=== PATIENT | female | born 1990 | race Caucasian/White ===

== ENCOUNTER → 2018-01-30 13:37 | Outpatient (CLI) | payer MEDICAID, SELFPAY | PROVIDERS: Visit Provider Nurse Practitioner | DX: E10.9 Type 1 diabetes mellitus without complications (principal); Z79.4 Long term (current) use of insulin | CPT/HCPCS: 36415; 83036 ==

== ENCOUNTER → 2018-07-16 11:55 | Outpatient (CLI) | payer MEDICAID, SELFPAY ==
[2018-07-16 12:39] LABS: Microalbumin:Creatinine Ratio 37.9 mg/g CRE (<30 mg/g CRE)
[2018-07-16 13:04] LABS: AST(SGOT) 11 U/L (15-37); Alanine Aminotransfer ALT/SGPT 22 U/L (13-56); Albumin, Serum 3.6 g/dL (3.2-5.0); Alkaline Phosphatase 67 U/L (45-117); Anion Gap 8 (5-15); BUN 15 mg/dL (7-18); BUN/Creat Ratio 18.1 RATIO (10-20); Calcium,Total 8.9 mg/dL (8.5-10.1); Chloride 102 mmol/L (98-107); Cholesterol 152 mg/dL (200); Creatinine, Serum 0.83 mg/dL (0.55-1.02); EST Glomerular Filtration Rate 86 mL/min (>60); Est Glom Filt Rate - Afr Amer 104 mL/min (>60); Globulin 3.5 g/dL (2.2-4.2); Glucose 196 mg/dL (74-106); High Density Lipoprotein 59 mg/dL; Potassium 4.2 mmol/L (3.5-5.1); Protein, Total 7.1 g/dL (6.4-8.2); Sodium Level 140 mmol/L (136-145); Triglycerides 54 mg/dL; Very Low Density Lipoprotein 11 mg/dL (5-40)
[2018-07-16 13:06] LABS: Hemoglobin A1c 9.2 % (4.2-6.3)
== END ==
PROVIDERS: Referring Provider Nurse Practitioner; Visit Provider Nurse Practitioner
DX: E10.65 Type 1 diabetes mellitus with hyperglycemia (principal)
CPT/HCPCS: 36415; 80053; 80061; 82043; 82570; 83036

== ENCOUNTER → 2018-11-05 11:39 | Outpatient (CLI) | payer MEDICAID, SELFPAY ==
[2018-11-05 10:51] VITALS: BMI 20.4
[2018-11-05 12:33] LABS: Hemoglobin A1c 9.1 % (4.2-6.3)
[2018-11-05 12:35] LABS: Microalbumin,Random Urine 70.5 mg/L (NO RANGE EST.); Microalbumin:Creatinine Ratio 69.8 mg/g CRE (<30 mg/g CRE)
[2018-11-05 12:59] LABS: AST(SGOT) 18 U/L (15-37); Alanine Aminotransfer ALT/SGPT 25 U/L (13-56); Albumin, Serum 3.8 g/dL (3.2-5.0); Alkaline Phosphatase 79 U/L (45-117); Anion Gap 6 (5-15); BUN 15 mg/dL (7-18); Calcium,Total 8.6 mg/dL (8.5-10.1); Chloride 106 mmol/L (98-107); Creatinine, Serum 0.75 mg/dL (0.55-1.02); EST Glomerular Filtration Rate 96 mL/min (>60); Est Glom Filt Rate - Afr Amer 116 mL/min (>60); Globulin 3.8 g/dL (2.2-4.2); Glucose 203 mg/dL (74-106); Protein, Total 7.6 g/dL (6.4-8.2); Sodium Level 139 mmol/L (136-145)
== END ==
PROVIDERS: Referring Provider Nurse Practitioner; Visit Provider Nurse Practitioner
DX: E10.65 Type 1 diabetes mellitus with hyperglycemia (principal)
CPT/HCPCS: 36415; 80053; 82043; 82570; 83036

== ENCOUNTER 2020-07-13 09:45 | Day surgery (SDC) | payer MEDICAID, SELFPAY ==
[2019-07-31 11:04] VITALS: BMI 20.4
--- NOTE | 2020-07-12 13:48 | HP.PCM_ITS ---
History and Physical Date of Admission: 07/13/20 HISTORY OF PRESENT ILLNESS 30 year old woman presents with a soft tissue mass right supramedial cheek by lateral nasal sidewall that she has had for a year and has increased in size over the last few months. There is some discomfort when she bumps it. She denies fever. She denies trauma. She denies any recent infection. She also has a concern about a lesion on her right ear in the mid antehelical fold area. There is discomfort when she bumps it. She denies any drainage. She denies trauma. She presents at this time for further evaluation and treatment. Patient has diabetes mellitus and her last HgbA1c was 7.9 in 04/06.. PAST MEDICAL HISTORY Alcohol abuse Anxiety Depression Diabetes type 1, controlled Diabetic retinopathy Vision problems partial vitrectomy PAST SURGICAL HISTORY csection x 3 ALLERGIES No Known Allergies MEDICATIONS insulin lispro (U-100) lisinopril insulin glargine (U-100) FAMILY HISTORY Unknown - Heart disease, Cancer Other - Alcoholism /alcohol abuse, Anxiety, Colon cancer, Respiratory disease Skin cancer (melanoma) SOCIAL HISTORY Smoking Status: Current every day smoker alcohol intake: former substance use type: does not use REVIEW OF SYSTEMS General - Denies fever and weight loss. Has fatigue. Eyes - Denies cataracts and glaucoma. ENT - Denies nasal congestion and sore throat. Endocrine - Denies excessive thirst and urination. Patient has diabetes mellitus. Skin - Denies skin cancer. Has enlarging painful soft tissue mass right supramedial cheek by lateral nasal sidewall and painful lesion right ear in mid antehelical fold. There is a family history of skin cancer. Musculoskeletal - Has joint pain, joint stiffness, weakness of muscles and joints. Denies back pain, and arthritis. Neuro - Denies headaches. Cardiovascular - Denies chest pain, fatigue, and shortness of breath with exertion. Psych - Denies anxiety and depression. Respiratory - Denies chronic cough and shortness of breath. Patient is a smoker. Gastrointestinal - Denies nausea, vomiting, diarrhea, and constipation. Hematologic - Denies abnormal bruising and bleeding. Genitourinary - Denies hematuria and urinary frequency. PHYSICAL EXAMINATION General - Alert and Oriented. HEENT - PERRL. EOMI. Throat is clear. On the right supramedial cheek by lateral nasal sidewall is a soft tissue mass. Measures 6 mm. Mobile. No evidence of infection. No ulceration. Slight tenderness to palpation. On the right ear in the mid antehelical fold area is a 6 mm lesion that is raised in configuration. Adherent to the underlying cartilage. No ulceration. No exposed cartilage. Slight tenderness to palpation. Neck - Supple and nontender. No cervical adenopathy. No suspicious lesions noted. Lungs - Clear to auscultation. Heart - Regular rate and rhythm. Abdomen - Soft and nondistended. Extremities - FROM. No axillary adenopathy. Radial pulses are palpable. No suspicious lesions noted. Neuro - CN II-XII grossly intact. Psych - Normal mood and affect. ASSESSMENT 1. 6 mm painful soft tissue mass right supramedial cheek by lateral nasal sidewall. 2. 6 mm painful lesion right ear in mid antehelical fold. 3. Family history of skin cancer. 4. Diabetes mellitus. 5. Smoker. PLAN Recommend excision of the soft tissue mass right supramedial cheek by lateral nasal sidewall and send it to Pathology for analysis to rule out carcinoma. Recommend excision of the painful lesion right ear in the mid antehelical fold and send it to Pathology for analysis to rule out carcinoma. If carcinoma is present, then further excision will be done with skin grafting. Surgery will be done under general anesthesia on an outpatient basis. Since the surgery is not an emergency, her HgbA1c is 7.9. It needs to be less than 8 before proceeding with surgery. Patient was informed of the risks and complications of the procedure including alternatives to surgery. These were discussed with the patient personally. Patient voices understanding and wishes to proceed. Some of the risks and complications were included in a form from the [place] [employer]. Encouraged patient to stop smoking as it may have deleterious effects on wound healing. We discussed the current risks associated with COVID-19. While it is understood that there is a community spread of COVID-19, the risk of sam COVID-19 while at [facility] ([facility]) is very low; however, the risk cannot be completely mitigated because of the community spread of the disease. We discussed in detail the risk of exposure to and/or potential harm posed by the COVID-19 virus with having a surgery/procedure at this time versus the risk of delaying the surgery/procedure. It is not possible to know either the risk of delaying the surgery or procedure or chance of getting an infection with perfect accuracy, but a joint decision was made to proceed at this time with the scheduled surgery/procedure as indicated on the consent form. Patient was notified that we will need to comply with any screening or testing [facility] wishes to perform or that surgery may be delayed for any positive results. Discussed with the patient that I was tested for COVID-19 on 03/19/20 which was negative and on 04/02/20 which was negative and on 04/16/20 which was negative and on 04/30/20 which was negative and on 05/14/20 which was negative and on 06/04/20 which was negative and on 06/25/20 which was negative. My testing regimen at this time is to be COVID-19 tested every 2 weeks or so. Procedure Criteria Procedure Type: Elective COVID Risk Discussion: The surgeon/proceduralist and patient have discussed in detail the risk of exposure to and/or potential harm posed by the COVID-19 virus with having a surgery/procedure at this time versus the risk of delaying the surgery/procedure. It is not possible to know either the risk of delaying the surgery or procedure or chance of getting an infection with perfect accuracy, but a joint decision was made between the patient and the surgeon/proceduralist to proceed at this time with the scheduled surgery/procedure as indicated on the consent form.
--- NOTE | 2020-07-13 | LES_PTH ---
PATIENT: LÁZARO MENESES [place] [facility] [place][id number] AGE/SX: 30/F ROOM: RE07/13/[address]: Dr. 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 Right ear lesion, shave biopsy: Actinic change. No evidence of carcinoma. AM:bowen 07/13/20 Case has been reviewed in consultation with Dr. Talamantes who concurs with the above diagnosis. IDC:JOSELUIS MICROSCOPIC DIAGNOSIS A. Right ear lesion, shave biopsy: Minimal actinic change. Focal hyperkeratosis. Negative for carcinoma. B. Right supramedial/labial nasal mass, biopsy: Epidermal inclusion cyst. JOSELUIS:bowen 07/14/20 COMMENT Case has been reviewed in consultation with Dr. Garcia who concurs with the above diagnosis. IDC:YAA MICROSCOPIC DESCRIPTION Slides are reviewed. GROSS DESCRIPTION A - Received fresh for frozen section diagnosis labeled with the patient's name is a specimen designated right ear mid antihelical fold lesion. The specimen consists of a shave biopsy of ramirez-white skin measuring 0.7 x 0.5 x 0.1 cm. The specimen is inked, bisected and submitted entirely for frozen section diagnosis in one cassette. B - Received in fixative is one container labeled with the patient's name and designated right supramedial/labial nasal mass. The specimen consists of an irregular, friable piece of ramirez-pink soft tissue measuring 1.3 x 0.5 x 0.2 cm. The entire specimen is submitted in one cassette. / JOSELUIS:bowen 07/13/20 TC:5 CPT: 53286, 37346, 41362
[2020-07-13 10:08] VITALS: BP 107/71; PULSE 92; RESP 14; TEMP 36.9; O2SAT 99; BMI 21.6
[2020-07-13 10:30] LABS: Internal QC Validated? YES +Cl - CLEAR BKGD; Pregnancy, Urine Negative Negative
[2020-07-13] MEDS: Lactated Ringers 1,000 ML 100 ML IV (10:31)
[2020-07-13] MEDS: Mupirocin Ointment 22gm Tube 1 APPLIC (11:18)
[2020-07-13 11:25] LABS: Bedside Glucose 235 mg/dL (70-110)
--- NOTE | 2020-07-13 11:31 | OP.PCM_ITS ---
Report of Operation Date of Procedure: 07/13/20 Pre-Operative Diagnosis: 1. 6 mm painful soft tissue mass right supramedial cheek by lateral nasal sidewall. 2. 6 mm painful lesion right ear in mid antehelical fold. 3. Family history of skin cancer. 4. Diabetes mellitus. 5. Smoker. Post-Operative Diagnosis: 1. 6 mm painful soft tissue mass right supramedial cheek by lateral nasal sidewall. 2. 6 mm actinic lesion right ear in mid antehelical fold. 3. Family history of skin cancer. 4. Diabetes mellitus. 5. Smoker. Surgery/Procedure Performed:: 1. Excision 6 mm painful soft tissue mass right supramedial cheek by lateral nasal sidewall. 2. Intradermal excision 6 mm actinic lesion right ear in mid antehelical fold. Description of Surgical Findings:: 30 year old woman presents with a soft tissue mass right supramedial cheek by lateral nasal sidewall that she has had for a year and has increased in size over the last few months. There is some discomfort when she bumps it. She denies fever. She denies trauma. She denies any recent infection. She also has a concern about a lesion on her right ear in the mid antehelical fold area. There is discomfort when she bumps it. She denies any drainage. She denies trauma. She presents at this time for further evaluation and treatment. Patient has diabetes mellitus and her last HgbA1c was 7.9 in 04/06. Patient was informed of the risks and complications of the procedure including alternatives to surgery. These were discussed with the patient personally. Patient voices understanding and wishes to proceed. Some of the risks and complications were included in a form from the [place] [employer]. Encouraged patient to stop smoking as it may have deleterious effects on wound healing. Frozen section right ear in mid antehelical fold - actinic lesion and no carcinoma seen. requirements engineer: None Type of Anesthesia:: General Specimen's removed: 1. Painful soft tissue mass right supramedial cheek by lateral nasal sidewall to Pathology. 2. Painful lesion right ear in mid antehelical fold to Pathology as a frozen section. Drains: None. Estimated Blood Loss (mL): 5 ml. Description of Procedure: Patient was taken to OR in supine position and was placed under general anesthesia. The right ear and right face including the cheek and nose were prepped and draped in the usual fashion. SCD's were placed for DVT prophylaxis. Perioperative antibiotics were given intravenously. For the procedure, I wore an N95 mask and wore proper eyewear protection. I excised the lesion right ear in mid antehelical fold in an intradermal fashion and sent to Pathology as a frozen section for analysis to rule out carcinoma. Frozen section showed an actinic lesion and no carcinoma seen. The intradermal excision did not expose the cartilage. Therefore no further surgery is needed on the right ear. Hemostasis was obtained with electrocautery and silver nitrate chemical cauterization. Antibiotic ointment was applied to the wound right ear. I then addressed the soft tissue mass right supramedial cheek. Using xylocaine with epinephrine, the soft tissue mass right supramedial cheek by lateral nasal sidewall was infiltrated. After waiting 5 minutes for the anesthetic to take effect, an oblique incision was made over the soft tissue mass. Dissection was carried into the subcutaneous tissue. The soft tissue mass was multiloculated and was adherent to the underlying facial musculature. It was dissected free off the muscle and the soft tissue mass was sent to Pathology for analysis to rule out carcinoma. Hemostasis was obtained with electrocautery. The wound was irrigated with saline. The wound was closed in a layered fashion with 5-0 Monocryl interrupted sutures for the deep dermis and subcutaneous tissue. The skin was approximated with 6-0 Prolene interrupted sutures. Steri-strips were applied to the incision followed by antibiotic ointment. Patient tolerated the procedure well and was sent to PACU in satisfactory condition. Patient will be sent home on antibiotics and pain medication. She will keep her head elevated during the initial postoperative period. Patient will followup in a week for a wound check and for discussion of the pathology report and for removal of the sutures. Grafts/Implants Used: None. - Complications None. - Admit VTE Documentation VTE Present on Admission: No VTE Mechan Device Prophylaxis: SCD's VTE Pharm Prophylaxis ordered?: No Surgery Charges CPT - 13428 ICD-10 - R22.0, R20.8, Z80.8, E11.9, F17.200 72324 L57.0, D49.2, Z80.8, E11.9, F17.200
[2020-07-13 11:37] VITALS: BP 107/71; BP 124/76; PULSE 87; RESP 16; TEMP 36.4; O2SAT 100
--- NOTE | 2020-07-13 11:41 | DCINST_ITS ---
You will use the following diet at home:: Calorie/Carbohydrate Controlled (specify 1200, 1400, etc) Discharge Activity: May not drive while taking narcotic pain medications., May Shower - in two days., - - keep head elevated. no heavy lifting. May shower in (days): 2 May resume sexual activity in: No Restrictions Ice area for (Minutes): 5 - as needed for facial swelling. Weight Bearing Status: Weight bearing as tolerated Lifting Restrictions: 20 lbs. Keep extremity elevated above heart level: - - elevate head. Call your doctor if your incision/area has: Continuous Slow Oozing, Sudden Increased Bleeding, Increased Pain/ Swelling, Increased Redness, Foul Smelling Discharge, Swelling at the incision site Call your doctor if you observe: Fever of 101 or Higher, Coldness, Increased Pain, Shortness of breath, Chest pain, Calf discomfort, Uncontrolled pain Suture Line Care: - - apply antibiotic ointment to suture line daily. Cleanse incision/area with: - - may get incisions wet in the shower in two days. Allergies/Adverse Reactions: Allergies No Known Allergies Allergy (Verified 07/03/20 09:20) Medications to take at Discharge Contour Next Test Strips See Dose Instructions .ROUTE .MEDSUPPLY #150 ea NS 07/16/18 lisinopril 2.5 mg tablet 2.5 mg PO DAILY #30 tab 07/16/18 Insulin Aspart [Insulin Aspart Penfill] 0 unit SQ .COMPLEX 07/03/20 Clindamycin HCl [Cleocin] 300 mg PO TID #15 cap 07/13/20 Oxycodone HCl/Acetaminophen [Percocet 5/325] 1 tablet PO Q6H PRN PRN 4 Days #15 tablet 07/13/20 The following prescriptions were given: Clindamycin HCl [Cleocin] 300 mg PO TID #15 cap Transmission Status: Pending to [id number] Oxycodone HCl/Acetaminophen [Percocet 5/325] 1 tablet PO Q6H PRN PRN 4 Days #15 tablet PRN Reason: Pain Score 6-10 Transmission Status: [facility] [address] [place] Primary Care Physician: MICHELLE VILLEGAS [Other] Test Results: Test results from this visit will be discussed in further detail at your follow- up appointment, if applicable. Please Follow Up With: Jonathan Suggs MD When: one week. call [phone] for appt. Proposed Discharge Date: 07/13/20
[2020-07-13 11:45] VITALS: BP 107/71; BP 111/71; PULSE 83; RESP 16; O2SAT 100
[2020-07-13 11:45] LABS: Bedside Glucose 242 mg/dL (70-110)
[2020-07-13 11:52] VITALS: BP 107/71; BP 120/76; PULSE 80; RESP 16; O2SAT 100
[2020-07-13 11:56] VITALS: BP 107/71; BP 123/76; PULSE 76; RESP 16; TEMP 36.5; O2SAT 99
[2020-07-13 12:21] VITALS: BP 107/71
== END 2020-07-13 12:22 | disposition home or self-care (01) ==
LOC: SDC 09:47 → AC 09:48
PROVIDERS: Anesthesiology; Referring Provider Surgery; Visit Provider Surgery
PROC: (CPT 11441; principal; 2020-07-13 10:55)
DX: Q18.1 Preauricular sinus and cyst (principal); L57.0 Actinic keratosis; Z20.828 Contact with and (suspected) exposure to other viral communicable diseases; W89.9XXA Exposure to unspecified man-made visible and ultraviolet light, initial encounter; Y93.9 Activity, unspecified; Y92.9 Unspecified place or not applicable; Y99.9 Unspecified external cause status; E10.319 Type 1 diabetes mellitus with unspecified diabetic retinopathy without macular edema; F32.9 Major depressive disorder, single episode, unspecified; F41.9 Anxiety disorder, unspecified; F17.200 Nicotine dependence, unspecified, uncomplicated; Z79.899 Other long term (current) drug therapy; Z96.41 Presence of insulin pump (external) (internal)
CPT/HCPCS: 00300; 11441; 21011; 81025; 82962; 87635; 88304; 88305; 88331; C9803; J7120; J2405; U0003